=== PATIENT | female | born 1990 | race Caucasian/White ===

== ENCOUNTER 2019-05-10 17:36 | Emergency (ER) | payer MEDICAID ==
[~2019-05-10] VITALS: Ht 170.2 cm; Wt 132.4 kg
[2019-05-10 21:45] VITALS: BP 106/72
== END 2019-05-10 21:47 | disposition home or self-care (01) ==
LOC: ED 21:41
DX: O46.91 Antepartum hemorrhage, unspecified, first trimester (principal); N93.8 Other specified abnormal uterine and vaginal bleeding; Z3A.08 8 weeks gestation of pregnancy
CPT/HCPCS: 36415; 76830; 80053; 84702; 85025; 86901; 99284

== ENCOUNTER 2019-05-12 07:36 | Emergency (ER) | payer MEDICAID ==
[~2019-05-12] VITALS: Ht 170.2 cm; Wt 132.0 kg
[2019-05-12 12:52] VITALS: BP 113/82
== END 2019-05-12 14:01 | disposition home or self-care (01) ==
LOC: ED 08:58
DX: O00.90 Unspecified ectopic pregnancy without intrauterine pregnancy (principal); Z32.01 Encounter for pregnancy test, result positive
CPT/HCPCS: 36415; 76830; 80053; 81001; 84702; 85025; 87086; 96372; 96374; 96375; 99284; J1885; J2270; J2405; J9250

== ENCOUNTER 2019-05-16 09:25 | Emergency (ER) | payer MEDICAID ==
[~2019-05-16] VITALS: Ht 170.2 cm; Wt 131.2 kg
[2019-05-16 13:48] VITALS: BP 116/66
== END 2019-05-16 14:11 | disposition home or self-care (01) ==
LOC: ED 13:38
DX: O26.891 Other specified pregnancy related conditions, first trimester (principal); Z3A.01 Less than 8 weeks gestation of pregnancy; R10.2 Pelvic and perineal pain
CPT/HCPCS: 36415; 76801; 80048; 82040; 84702; 85025; 96374; 96375; 99284; J1200; J2270; J2765; J7030